=== PATIENT | male | born 1985 | race African-American/Black ===

== ENCOUNTER 2022-09-17 19:06 | Emergency (ER) | payer SELFPAY ==
[~2022-09-17] VITALS: Ht 175.3 cm; Wt 84.0 kg
[2022-09-17 19:19] VITALS: BP 156/83
[2022-09-18] MEDS ORDERED: CEPH500C2 MT (00:53)
[2022-09-18] MEDS ORDERED: IBUP-2029 MT (00:53)
== END 2022-09-17 20:59 | disposition left against medical advice (07) ==
LOC: ER 19:06
DX: M79.89 Other specified soft tissue disorders (principal); Z53.21 Procedure and treatment not carried out due to patient leaving prior to being seen by health care provider
CPT/HCPCS: 99281

== ENCOUNTER 2022-09-17 23:33 | Emergency (ER) | payer MEDICAID, OTHER ==
[~2022-09-17] VITALS: Ht 175.3 cm; Wt 84.0 kg
[2022-09-18] MEDS ORDERED: IBUP-2029 MT (00:53)
[2022-09-18] MEDS ORDERED: CEPH500C2 MT (00:53)
[2022-09-18] MEDS ORDERED: IBUPROFEN 600MG TABLET PO ONE (01:00)
[2022-09-18] MEDS ORDERED: CEPHALEXIN 250MG CAPSULE PO ONE (01:00)
[2022-09-18 01:20] VITALS: BP 126/84
== END 2022-09-18 01:20 | disposition home or self-care (01) ==
LOC: ER 23:33
DX: L03.011 Cellulitis of right finger (principal); Z59.00 Homelessness unspecified
CPT/HCPCS: 99283